=== PATIENT | male | born 1965 | race Hispanic/Latino ===

== ENCOUNTER 2020-09-28 07:36 | Inpatient (IN) | payer BC ==
[~2020-09-28] VITALS: Ht 180.3 cm; Wt 93.5 kg
[2020-09-28] MEDS ORDERED: PANTOPRAZOLE 40 MG 10ML VIAL IV STA (08:01)
[2020-09-28] MEDS ORDERED: MORPHINE SULFATE INJ 4 MG/ML INJ 1ML IV STA (08:01)
[2020-09-28] MEDS ORDERED: ONDANSETRON HCL INJ 2MG/ML 2ML 2 MG/ML VIAL IV STA (08:01)
[2020-09-28 08:19] LABS: BASOPHILS % 0.2 % (0.0-1.0); EOSINOPHILS % 0.2 % (0.0-6.0); HEMATOCRIT 31.5 % (38.2-49.6); HEMOGLOBIN 11.2 g/dL (14.0-18.0); LYMPHOCYTES # (AUTO) 0.4 (1.0-3.2); MEAN CORPUSCULAR HEMOGLOBIN 32.7 pg (28-32); MEAN CORPUSCULAR HGB CONC 35.6 g/dL (31-35); MEAN CORPUSCULAR VOLUME 91.8 fL (81-99); MONOCYTES # (AUTO) 0.5 (0.2-0.8); NEUTROPHILS # (AUTO) 3.7 (2.1-6.9); NEUTROPHILS % 80.2 % (38.7-80.0); RED BLOOD COUNT 3.43 x10e6/uL (4.3-5.7); RED CELL DISTRIBUTION WIDTH 13.6 % (11.7-14.4)
[2020-09-28 08:24] LABS: PLATELET COUNT 25 x10e3/uL (140-360)
[2020-09-28 08:34] LABS: ALANINE AMINOTRANSFERASE 18 IU/L (0-55); ALBUMIN/GLOBULIN RATIO 0.9 (0.8-2.0); ALKALINE PHOSPHATASE 59 IU/L (40-150); ANION GAP 11.4 mmol/L (8-16); BLOOD UREA NITROGEN 18 mg/dL (7-26); BUN/CREATININE RATIO 24 (6-25); CALCIUM 7.7 mg/dL (8.4-10.2); CARBON DIOXIDE 21 mmol/L (22-29); CHLORIDE 108 mmol/L (98-107); CREATINE KINASE 45 IU/L (30-200); CREATININE, SERUM 0.75 mg/dL (0.72-1.25); EST GLOMERULAR FILTRATION RATE > 60 ML/MIN (60-); GLUCOSE 117 mg/dL (74-118); POTASSIUM 3.4 mmol/L (3.5-5.1); SODIUM 137 mmol/L (136-145)
[2020-09-28 08:35] LABS: INR 1.42
[2020-09-28 08:36] LABS: PARTIAL THROMBOPLASTIN TIME 50.1 seconds (23.8-35.5)
[2020-09-28] MEDS ORDERED: SODIUM CHLORIDE 0.9% 50ML 50 ML ONE (08:51)
[2020-09-28] MEDS ORDERED: IOPAMIDOL 370 MG/ML 200 ML INFUS..BTL INJ ONE (08:51)
[2020-09-28] MEDS ORDERED: SODIUM CHLORIDE 0.9% 500ML 500 ML IV ONE (09:15)
[2020-09-28] MEDS ORDERED: AZITHROMYCIN 250 MG TAB PO ONE (10:00)
[2020-09-28] MEDS ORDERED: CEFTRIAXONE SOD 2 GM/100 ML ML IV SCH (10:00)
[2020-09-28 10:17] LABS: CLARITY,URINE CLEAR (CLEAR); COLOR,URINE ORANGE (YELLOW); LEUKOCYTE ESTERASE ,URINE NEGATIVE (NEGATIVE)
[2020-09-28 10:18] LABS: KETONES,URINE NEGATIVE (NEGATIVE); NITRITE,URINE NEGATIVE (NEGATIVE); PROTEIN,URINE DIPSTICK NEGATIVE (NEGATIVE); URINE UROBILINOGEN >=8 mg/dL (0.2 - 1)
[2020-09-28] MEDS: CEFTRIAXONE SOD 2 GM in SODIUM CHLORIDE 0.9% 100 ML IV SCH (10:18)
[2020-09-28 10:23] LABS: BACTERIA,URINE RARE /HPF; RBC,URINE 0-5 /HPF (0-5); WBC,URINE (MAN) 0-5 /HPF (0-5)
[2020-09-28 10:24] LABS: EPITHELIAL CELLS,URINE FEW /LPF
[2020-09-28] MEDS ORDERED: PHYTONADIONE 10 MG/ML AMP PO ONE (14:15)
[2020-09-28 15:08] VITALS: BP 110/63
[2020-09-28 15:30] VITALS: BP 110/63
[2020-09-28 15:57] VITALS: BP 134/69
[2020-09-28] MEDS ORDERED: PHYTONADIONE 5 MG TAB PO NR (16:00)
[2020-09-28] MEDS ORDERED: PHYTONADIONE 10 MG/ML AMP SQ NR (16:15)
[2020-09-28] MEDS ORDERED: FUROSEMIDE40 MG PO (18:23)
[2020-09-28] MEDS ORDERED: LACTULOSE20 GM/30 M PO (18:23)
[2020-09-28] MEDS ORDERED: PROPRANOLOL HCL10 MG PO (18:23)
[2020-09-28] MEDS ORDERED: SODIUM CHLORIDE 0.9% 250ML 250 ML IV ONE (18:45)
[2020-09-28 20:00] VITALS: BP 140/80
[2020-09-28 21:00] VITALS: BP 140/80
[2020-09-28] MEDS ORDERED: ACETAMINOPHEN 325 MG TAB PO PRN (21:00)
[2020-09-28] MEDS ORDERED: SODIUM CHLORIDE 0.9% 250ML 250 ML ONE (23:11)
[2020-09-28] MEDS: MORPHINE SULFATE INJ 2 MG/ML SYR IV PRN (23:22)
[2020-09-28] MEDS: ONDANSETRON HCL INJ 2MG/ML 2ML 2 MG/ML VIAL IV PRN (23:23)
[2020-09-29] VITALS (18 sets, daily range): BP systolic 107–159; BP diastolic 55–80
[2020-09-29] MEDS: MORPHINE SULFATE INJ 2 MG/ML SYR IV PRN ×3 (03:39→20:50)
[2020-09-29] MEDS: ONDANSETRON HCL INJ 2MG/ML 2ML 2 MG/ML VIAL IV PRN (03:39)
[2020-09-29 06:53] LABS: BASOPHILS % 0.3 % (0.0-1.0); HEMATOCRIT 25.8 % (38.2-49.6); HEMOGLOBIN 9.3 g/dL (14.0-18.0); LYMPHOCYTES # (AUTO) 0.5 (1.0-3.2); LYMPHOCYTES % 15.1 % (18.0-39.1); MEAN CORPUSCULAR HEMOGLOBIN 32.3 pg (28-32); MEAN CORPUSCULAR VOLUME 89.6 fL (81-99); MONOCYTES # (AUTO) 0.3 (0.2-0.8); MONOCYTES % 10.6 % (4.4-11.3); NEUTROPHILS # (AUTO) 2.3 (2.1-6.9); NEUTROPHILS % 72.4 % (38.7-80.0); RED BLOOD COUNT 2.88 x10e6/uL (4.3-5.7); RED CELL DISTRIBUTION WIDTH 13.2 % (11.7-14.4)
[2020-09-29 07:14] LABS: ALANINE AMINOTRANSFERASE 17 IU/L (0-55); ALBUMIN 2.8 g/dL (3.5-5.0); ALBUMIN/GLOBULIN RATIO 0.9 (0.8-2.0); ALKALINE PHOSPHATASE 56 IU/L (40-150); ANION GAP 11.3 mmol/L (8-16); BLOOD UREA NITROGEN 14 mg/dL (7-26); BUN/CREATININE RATIO 20 (6-25); CALCIUM 7.4 mg/dL (8.4-10.2); CARBON DIOXIDE 20 mmol/L (22-29); CHLORIDE 107 mmol/L (98-107); CREATININE, SERUM 0.69 mg/dL (0.72-1.25); EST GLOMERULAR FILTRATION RATE > 60 ML/MIN (60-); GLUCOSE 94 mg/dL (74-118); POTASSIUM 3.3 mmol/L (3.5-5.1); SODIUM 135 mmol/L (136-145)
[2020-09-29 07:18] LABS: INR 1.32; PLATELET COUNT 40 x10e3/uL (140-360); PROTHROMBIN TIME 17.1 seconds (11.9-14.5)
[2020-09-29 07:19] LABS: PARTIAL THROMBOPLASTIN TIME 48.5 seconds (23.8-35.5)
[2020-09-29] MEDS ORDERED: HEPARIN SOD/SOD CHLORIDE 1,000 ML ONE (09:35)
[2020-09-29] MEDS: CEFTRIAXONE SOD 2 GM in SODIUM CHLORIDE 0.9% 100 ML IV SCH (10:00)
[2020-09-29] MEDS ORDERED: SUGAMMADEX SODIUM 200 MG/2 ML VIAL IV ONE (10:43)
[2020-09-29] MEDS ORDERED: HYDROMORPHONE 1MG/1ML INJ ONE (15:18)
[2020-09-29] MEDS ORDERED: ONDANSETRON HCL INJ 2MG/ML 2ML 2 MG/ML VIAL IV PRN (15:45)
[2020-09-29] MEDS: DEXTROSE 5%/0.9% SOD CHL 1,000 ML IV SCH (16:09)
[2020-09-29 16:52] LABS: ABG HCO3 25 mmol/L (22-26); ABG PCO2 39 mmHg (35-45); ABG PH 7.42 (7.35-7.45); ABG PO2 112 mmHg (80-105); ABG TCO2 26
[2020-09-29] MEDS: PROPRANOLOL HCL 10 MG TAB PO SCH (17:02)
[2020-09-29] MEDS: TRAMADOL HCL 50 MG TAB PO PRN ×2 (17:02→20:00)
[2020-09-29] MEDS ORDERED: MIDAZOLAM HCL 2 MG/2 ML VIAL ONE (17:30)
[2020-09-29] MEDS ORDERED: FENTANYL CITRATE/PF 100MCG/2 ML INJ ONE (17:30)
[2020-09-29] MEDS ORDERED: LIDOCAINE HCL 2% LOCAL INJ 5 ML SDV VIAL INJ ONE (19:18)
[2020-09-29] MEDS ORDERED: SEVOFLURANE INHAL SOLN 250 ML PEN BTL ONE (19:18)
[2020-09-29] MEDS ORDERED: PROPOFOL IV EMULSION 10 MG/ML 20 ML VIAL ONE (19:18)
[2020-09-29] MEDS ORDERED: ONDANSETRON HCL INJ 2MG/ML 2ML 2 MG/ML VIAL ONE (19:18)
[2020-09-29] MEDS ORDERED: ROCURONIUM BROMIDE 10 MG/ML 5ML VIAL IV ONE (19:18)
[2020-09-29] MEDS ORDERED: CEFTRIAXONE SOD 1 GM VIAL ONE (19:18)
[2020-09-29 20:21] LABS: HEMATOCRIT 26.3 % (38.2-49.6); HEMOGLOBIN 9.4 g/dL (14.0-18.0); LYMPHOCYTES # (AUTO) 0.3 (1.0-3.2); LYMPHOCYTES % 9.2 % (18.0-39.1); MEAN CORPUSCULAR HEMOGLOBIN 32.5 pg (28-32); MEAN CORPUSCULAR HGB CONC 35.7 g/dL (31-35); MONOCYTES # (AUTO) 0.3 (0.2-0.8); MONOCYTES % 8.2 % (4.4-11.3); NEUTROPHILS # (AUTO) 2.5 (2.1-6.9); NEUTROPHILS % 81.6 % (38.7-80.0); PLATELET COUNT 52 x10e3/uL (140-360); RED BLOOD COUNT 2.89 x10e6/uL (4.3-5.7); RED CELL DISTRIBUTION WIDTH 13.3 % (11.7-14.4)
[2020-09-29 20:35] LABS: ALANINE AMINOTRANSFERASE 15 IU/L (0-55); ALBUMIN 2.7 g/dL (3.5-5.0); ALBUMIN/GLOBULIN RATIO 0.9 (0.8-2.0); ALKALINE PHOSPHATASE 65 IU/L (40-150); ANION GAP 10.5 mmol/L (8-16); BLOOD UREA NITROGEN 13 mg/dL (7-26); BUN/CREATININE RATIO 17 (6-25); CALCIUM 7.2 mg/dL (8.4-10.2); CARBON DIOXIDE 24 mmol/L (22-29); CHLORIDE 105 mmol/L (98-107); CREATININE, SERUM 0.75 mg/dL (0.72-1.25); EST GLOMERULAR FILTRATION RATE > 60 ML/MIN (60-); GLUCOSE 168 mg/dL (74-118); POTASSIUM 3.5 mmol/L (3.5-5.1); SODIUM 136 mmol/L (136-145)
[2020-09-30] VITALS (17 sets, daily range): BP systolic 117–162; BP diastolic 59–94
[2020-09-30] MEDS: MORPHINE SULFATE INJ 2 MG/ML SYR IV PRN ×3 (00:32→19:52)
[2020-09-30] MEDS: DEXTROSE 5%/0.9% SOD CHL 1,000 ML IV SCH ×3 (03:05→22:40)
[2020-09-30 05:40] LABS: EOSINOPHILS # (AUTO) 0.1 (0.0-0.4); EOSINOPHILS % 1.9 % (0.0-6.0); HEMATOCRIT 25.7 % (38.2-49.6); HEMOGLOBIN 9.3 g/dL (14.0-18.0); LYMPHOCYTES # (AUTO) 0.4 (1.0-3.2); LYMPHOCYTES % 14.2 % (18.0-39.1); MEAN CORPUSCULAR HEMOGLOBIN 32.6 pg (28-32); MEAN CORPUSCULAR HGB CONC 36.2 g/dL (31-35); MEAN CORPUSCULAR VOLUME 90.2 fL (81-99); MONOCYTES # (AUTO) 0.2 (0.2-0.8); MONOCYTES % 8.8 % (4.4-11.3); NEUTROPHILS # (AUTO) 1.9 (2.1-6.9); NEUTROPHILS % 74.3 % (38.7-80.0); PLATELET COUNT 61 x10e3/uL (140-360); RED BLOOD COUNT 2.85 x10e6/uL (4.3-5.7); RED CELL DISTRIBUTION WIDTH 13.2 % (11.7-14.4)
[2020-09-30 05:54] LABS: INR 1.25; PROTHROMBIN TIME 16.4 seconds (11.9-14.5)
[2020-09-30 05:58] LABS: ALANINE AMINOTRANSFERASE 14 IU/L (0-55); ALBUMIN 2.7 g/dL (3.5-5.0); ALBUMIN/GLOBULIN RATIO 0.9 (0.8-2.0); ALKALINE PHOSPHATASE 53 IU/L (40-150); ANION GAP 11.4 mmol/L (8-16); BLOOD UREA NITROGEN 12 mg/dL (7-26); BUN/CREATININE RATIO 18 (6-25); CALCIUM 7.2 mg/dL (8.4-10.2); CARBON DIOXIDE 23 mmol/L (22-29); CHLORIDE 105 mmol/L (98-107); CREATININE, SERUM 0.68 mg/dL (0.72-1.25); EST GLOMERULAR FILTRATION RATE > 60 ML/MIN (60-); GLUCOSE 124 mg/dL (74-118); POTASSIUM 3.4 mmol/L (3.5-5.1); SODIUM 136 mmol/L (136-145)
[2020-09-30] MEDS ORDERED: BISACODYL 10 MG SUPP PR NR (08:15)
[2020-09-30] MEDS ORDERED: POTASSIUM CHLORIDE 20 MEQ TAB CR PO NR ×2 (08:15→16:00)
[2020-09-30] MEDS: LACTULOSE SYRUP 20 GM/30 ML UDC PO SCH (09:19)
[2020-09-30] MEDS: PROPRANOLOL HCL 10 MG TAB PO SCH ×2 (09:20→18:48)
[2020-09-30] MEDS: CEFTRIAXONE SOD 2 GM in SODIUM CHLORIDE 0.9% 100 ML IV SCH (10:00)
[2020-09-30] MEDS ORDERED: FUROSEMIDE INJ 10 MG/ML 2 ML VIAL IV NR (14:00)
[2020-10-01] VITALS (8 sets, daily range): BP systolic 118–143; BP diastolic 62–82
[2020-10-01] MEDS: MORPHINE SULFATE INJ 2 MG/ML SYR IV PRN ×4 (02:24→18:05)
[2020-10-01] MEDS: DEXTROSE 5%/0.9% SOD CHL 1,000 ML IV SCH ×2 (06:29→18:11)
[2020-10-01] MEDS ORDERED: ONDANSETRON HCL 4 MG ORAL DISINTEGRATING TAB PO PRN (08:15)
[2020-10-01] MEDS: LACTULOSE SYRUP 20 GM/30 ML UDC PO SCH (08:16)
[2020-10-01] MEDS: CEFTRIAXONE SOD 2 GM in SODIUM CHLORIDE 0.9% 100 ML IV SCH (08:16)
[2020-10-01] MEDS: PROPRANOLOL HCL 10 MG TAB PO SCH ×2 (08:17→18:05)
[2020-10-01] MEDS: SPIRONOLACTONE 25 MG TAB PO SCH (18:04)
[2020-10-02] VITALS (11 sets, daily range): BP systolic 115–147; BP diastolic 66–78
[2020-10-02] MEDS: MORPHINE SULFATE INJ 2 MG/ML SYR IV PRN ×5 (02:55→20:32)
[2020-10-02] MEDS: DEXTROSE 5%/0.9% SOD CHL 1,000 ML IV SCH (04:09)
[2020-10-02] MEDS: LACTULOSE SYRUP 20 GM/30 ML UDC PO SCH (08:50)
[2020-10-02] MEDS: PROPRANOLOL HCL 10 MG TAB PO SCH ×2 (08:51→16:17)
[2020-10-02] MEDS: FUROSEMIDE 20 MG TAB PO SCH (08:51)
[2020-10-02] MEDS: SPIRONOLACTONE 25 MG TAB PO SCH ×2 (08:51→16:17)
[2020-10-02] MEDS: CEFTRIAXONE SOD 2 GM in SODIUM CHLORIDE 0.9% 100 ML IV SCH (10:03)
[2020-10-02 10:18] LABS: BASOPHILS % 0.8 % (0.0-1.0); EOSINOPHILS % 2.5 % (0.0-6.0); HEMATOCRIT 24.7 % (38.2-49.6); HEMOGLOBIN 8.9 g/dL (14.0-18.0); LYMPHOCYTES # (AUTO) 0.2 (1.0-3.2); LYMPHOCYTES % 18.3 % (18.0-39.1); MEAN CORPUSCULAR HEMOGLOBIN 32.4 pg (28-32); MEAN CORPUSCULAR VOLUME 89.8 fL (81-99); MONOCYTES # (AUTO) 0.2 (0.2-0.8); MONOCYTES % 18.3 % (4.4-11.3); NEUTROPHILS # (AUTO) 0.7 (2.1-6.9); NEUTROPHILS % 58.4 % (38.7-80.0); PLATELET COUNT 52 x10e3/uL (140-360); RED BLOOD COUNT 2.75 x10e6/uL (4.3-5.7); RED CELL DISTRIBUTION WIDTH 13.2 % (11.7-14.4)
[2020-10-02 10:44] LABS: ANION GAP 9.7 mmol/L (8-16); BLOOD UREA NITROGEN 8 mg/dL (7-26); BUN/CREATININE RATIO 12 (6-25); CALCIUM 7.4 mg/dL (8.4-10.2); CARBON DIOXIDE 21 mmol/L (22-29); CHLORIDE 108 mmol/L (98-107); CREATININE, SERUM 0.67 mg/dL (0.72-1.25); EST GLOMERULAR FILTRATION RATE > 60 ML/MIN (60-); GLUCOSE 106 mg/dL (74-118); POTASSIUM 3.7 mmol/L (3.5-5.1); SODIUM 135 mmol/L (136-145)
[2020-10-02] MEDS ORDERED: FILGRASTIM-AAFI 480 MCG/0.8 ML SYRINGE SQ ONE (14:00)
[2020-10-02] MEDS: TRAMADOL HCL 50 MG TAB PO PRN (22:24)
[2020-10-03 00:16] VITALS: BP 123/72
[2020-10-03 04:00] VITALS: BP 127/71
[2020-10-03] MEDS: TRAMADOL HCL 50 MG TAB PO PRN ×2 (04:09→09:54)
[2020-10-03 04:51] LABS: BASOPHILS % 0.3 % (0.0-1.0); EOSINOPHILS % 0.5 % (0.0-6.0); HEMATOCRIT 25.1 % (38.2-49.6); HEMOGLOBIN 9.1 g/dL (14.0-18.0); LYMPHOCYTES # (AUTO) 0.4 (1.0-3.2); LYMPHOCYTES % 4.7 % (18.0-39.1); MEAN CORPUSCULAR HGB CONC 36.3 g/dL (31-35); MEAN CORPUSCULAR VOLUME 90.9 fL (81-99); MONOCYTES # (AUTO) 0.4 (0.2-0.8); MONOCYTES % 5.1 % (4.4-11.3); NEUTROPHILS # (AUTO) 6.6 (2.1-6.9); PLATELET COUNT 56 x10e3/uL (140-360); RED BLOOD COUNT 2.76 x10e6/uL (4.3-5.7); RED CELL DISTRIBUTION WIDTH 13.7 % (11.7-14.4)
[2020-10-03 05:10] LABS: BLOOD UREA NITROGEN 10 mg/dL (7-26); BUN/CREATININE RATIO 16 (6-25); CALCIUM 7.8 mg/dL (8.4-10.2); CARBON DIOXIDE 21 mmol/L (22-29); CHLORIDE 107 mmol/L (98-107); CREATININE, SERUM 0.63 mg/dL (0.72-1.25); EST GLOMERULAR FILTRATION RATE > 60 ML/MIN (60-); GLUCOSE 85 mg/dL (74-118); SODIUM 135 mmol/L (136-145)
[2020-10-03] MEDS: SPIRONOLACTONE 25 MG TAB PO SCH (07:57)
[2020-10-03] MEDS: PROPRANOLOL HCL 10 MG TAB PO SCH (07:58)
[2020-10-03] MEDS: FUROSEMIDE 20 MG TAB PO SCH (07:58)
[2020-10-03] MEDS: LACTULOSE SYRUP 20 GM/30 ML UDC PO SCH (07:58)
[2020-10-03 07:59] LABS: BAND NEUTROPHILS % (MANUAL) 7 %; LYMPHOCYTES % (MANUAL) 3 % (19-48); MONOCYTES % (MANUAL) 10 % (3.4-9.0); NEUTROPHILS % (MANUAL) 80 % (40-74); PLATELET ESTIMATE MARKEDLY DECREASED; PLATELET MORPHOLOGY COMMENT NORMAL; RBC MORPHOLOGY COMMENT NORMAL; TOXIC GRANULATION SLIGHT
[2020-10-03 08:00] VITALS: BP 132/70
[2020-10-03 08:13] VITALS: BP 132/70
[2020-10-03 08:34] VITALS: BP 132/70
[2020-10-03] MEDS ORDERED: LASIX20 MG PO (11:12)
[2020-10-03] MEDS ORDERED: TYLENOL # 31 EA PO (11:12)
[2020-10-03] MEDS ORDERED: SPIRONOLACTONE25 MG PO (11:12)
[2020-10-03 11:53] VITALS: BP 126/85
== END 2020-10-03 14:25 | disposition home or self-care (01) | DRG 351 ==
LOC: ER 07:39 → ERHOLD 14:09 → MED/SURG2 14:58 → ICU 09-29 16:04 → MED/SURG 09-30 19:01
PROVIDERS: ADMIT Internal Medicine; ATTEND Internal Medicine
PROC: 30233R1 Transfusion of Nonautologous Platelets into Peripheral Vein, Percutaneous Approach (ICD-10-PCS; 2020-09-28)
PROC: 0VT90ZZ Resection of Right Testis, Open Approach (ICD-10-PCS; 2020-09-29)
PROC: 0YQ50ZZ Repair Right Inguinal Region, Open Approach (ICD-10-PCS; 2020-09-29)
PROC: 0DBU0ZZ Excision of Omentum, Open Approach (ICD-10-PCS; principal; 2020-09-29 10:00)
DX: K40.30 Unilateral inguinal hernia, with obstruction, without gangrene, not specified as recurrent (principal); K76.6 Portal hypertension; I10 Essential (primary) hypertension; K70.30 Alcoholic cirrhosis of liver without ascites; D69.6 Thrombocytopenia, unspecified; Z86.19 Personal history of other infectious and parasitic diseases; F10.21 Alcohol dependence, in remission; Z87.891 Personal history of nicotine dependence; N43.3 Hydrocele, unspecified; D72.819 Decreased white blood cell count, unspecified; D64.9 Anemia, unspecified; E87.6 Hypokalemia; E83.51 Hypocalcemia; K80.80 Other cholelithiasis without obstruction; D73.1 Hypersplenism; Z20.822 Contact with and (suspected) exposure to COVID-19
CPT/HCPCS: 36415; 71045; 74018; 74177; 76700; 76870; 80048; 80053; 81001; 82140; 82550; 82553; 82805; 83735; 84484; 85025; 85610; 85730; 86850; 86900; 86920; 86945; 87040; 87086; 88302; 88304; 88305; 88307; 93005; 93976; 99284; J0696; J1170; J1442; J1940; J2001; J2250; J2270; J2405; J3010; J3430; J7040; J7042; J7050; P9034; Q9967; U0002

== ENCOUNTER 2021-10-16 07:45 | Emergency (ER) | payer SELFPAY ==
[~2021-10-16] VITALS: Ht 170.2 cm; Wt 83.9 kg
[~2021-10-16 07:45] MED LIST: FUROSEMIDE40 MG PO; LACTULOSE20 GM/30 M PO; LASIX20 MG PO; PROPRANOLOL HCL10 MG PO; SPIRONOLACTONE25 MG PO; TYLENOL # 31 EA PO
== END 2021-10-16 08:35 | disposition home or self-care (01) ==
LOC: ER 08:00
DX: R51.9 Headache, unspecified (principal); K74.60 Unspecified cirrhosis of liver; R16.0 Hepatomegaly, not elsewhere classified; R11.2 Nausea with vomiting, unspecified; I10 Essential (primary) hypertension; B19.20 Unspecified viral hepatitis C without hepatic coma
CPT/HCPCS: 99283